=== PATIENT | female | born 1950 | race Two or more races ===

== ENCOUNTER 2023-09-09 13:20 | Emergency (ER) | payer MEDICARE, MEDICAID ==
[~2023-09-09] VITALS: Ht 167.6 cm; Wt 65.0 kg
[2023-09-09 13:39] VITALS: TEMP 98.4
[2023-09-09 14:58] VITALS: BP 150/73; PULSE 75; RESP 16
== END 2023-09-09 15:00 | disposition home or self-care (01) ==
LOC: EMS 13:37
DX: I10 Essential (primary) hypertension (principal)
CPT/HCPCS: 99281; Z7502